=== PATIENT | female | born 1955 | race Caucasian/White ===

== ENCOUNTER → 2022-06-12 | Emergency (ER) | payer MEDICARE, OTHER ==
[~2022-06-12] MED LIST: Sodium Chloride 0.9% 10 ML Syringe FLUSH PRN
[2022-06-12 16:59] LABS: ESTIMATED GFR 83 mL/min (>60)
== END | disposition home or self-care (01) ==
LOC: LB.ED 16:01
DX: R10.9 Unspecified abdominal pain (principal)
CPT/HCPCS: 36415; 74176; 80053; 81001; 85027; 99282; 99284